=== PATIENT | male | born 2005 | race Caucasian/White ===

== ENCOUNTER 2025-06-01 06:14 | Emergency (ER) | payer BC, SELFPAY ==
[2025-06-01 06:17] VITALS: BP 131/92
[2025-06-01 06:51] LABS: Hematocrit 48.5 % (39.0-52.0); Hemoglobin 17.1 g/dL (13.0-18.0); Mean Corp Hgb Conc. 35.3 g/dL (33.0-37.0); Mean Corpuscular Volume 85.8 fL (80.0-94.0); Platelet Count 178 10^3/uL (130-400); Red Cell Dist. Width 11.9 % (11.5-14.5)
[2025-06-01 07:01] LABS: Urine Character Clear (Clear)
--- NOTE | 2025-06-01 07:03 | ED.GENMED ---
History of Present Illness
<Joaquin Springer MD, Resident - Last Filed: 06/01/25 08:40>
General
Chief Complaint: Abdominal Symptoms
Source: patient
Exam Limitations: none
Time Seen by Provider: 06/01/25 06:43
Nursing documentation reviewed up to this point in time: agreed with
History of Present Illness
History of Present Illness:
This is a 19-year-old male with history of psoriasis presenting today with complaints of abdominal pain, nonbloody watery diarrhea, nausea and vomiting. Reports that symptoms started 3 days ago. Only 1 today. Some however the next day he
experienced abdominal pain continuous vomiting and developed diarrhea which is still ongoing. He has been experiencing episodes of vomiting and diarrhea every 1-2 hours. Today when he woke up he noticed bilateral flank pain. Denies any urinary
symptoms. Denies any chest pain, shortness of breath, change in vision or any weakness. Due to ongoing diarrhea and vomiting he is also complaining of mild headache. Denies any documented fever, reports that he has experienced some chills with
the symptoms. Rates the pain as 5/10, intermittent in nature, sharp, aggravated with sitting up. Unsure of any relieving factors. Denies any recent sickness or sick contacts.
Past History
<Joaquin Springer MD, Resident - Last Filed: 06/01/25 08:40>
Past History
ED Past Medical History: Other (Psoriasis)
ED Past Surgical History: Other (Leukopenia, adenoidectomy, circumcision)
Patient has exhibited threatening behavior?: No
Social History
Tobacco: Non-smoker
Alcohol: Occasional
Drug: Marijuana
Living: with family
Family History
Family History: Other (Noncontributory)
Review of Systems
<Joaquin Springer MD, Resident - Last Filed: 06/01/25 08:40>
Review of Systems
Allergies reviewed?: Yes
Constitutional: Reports chills; Denies fever or night sweats
EENT: Denies sore throat
Cardiac: Denies chest pain
ABD/GI: Reports abdominal pain, nausea, vomiting and diarrhea; Denies bloody stools
: Reports flank pain; Denies dysuria, frequency, incontinence or difficulty voiding
Musculoskeletal: Denies joint pain
Skin: Denies itching
Neurological: Reports headache; Denies dizzy
Endocrine: Denies polyuria
Hematologic/Lymphatic: Denies bleeding
Phy Exam
<Joaquin Springer MD, Resident - Last Filed: 06/01/25 08:40>
General Physical Exam
General Presentation: well appearing and no apparent distress
General age: appears stated age
General Skin: warm
General Habitus: normal
General Mental: alert
General Hydration: appears well hydrated
Eye Exam
Eye Exam: EOMI
Cardiovascular Exam
Cardiovascular Exam: regular rate/rhythm and no murmur
Pulmonary Exam
Pulmonary Exam: lungs clear, no respiratory distress and no cough
Gastrointestinal Exam
Gastrointestinal Exam: normal bowel sounds, non tender, soft, no pulsatile mass, non distended and no cva tenderness
Neurological Exam
Neurological Exam: alert and oriented x3
Musculoskeletal Exam
Musculoskeletal Exam: full ROM
Course
<Joaquin Springer MD, Resident - Last Filed: 06/01/25 08:40>
Orders/Labs/Results
Orders:
Orders
06/01/25 06:32
Urinalysis Reflex To Culture Urgent
Date Specimen was Collected: 06/01/25
Time Specimen was Collected: 06:28
Urine Microscopic Reflex Cult Urgent
06/01/25 06:35
Complete Blood Count/With Diff Urgent
Comprehensive Metabolic Panel Urgent
Lipase Urgent
Comment: ADD ON
Manual Differential Urgent
06/01/25 07:07
Add On- LAB Urgent
Tests Added?: Lipase
0.9% Sodium Chloride 1000 ml [Nss] 1,000 ml IV BOLUS
Ondansetron Injectable [Zofran] 4 mg IV NOW STA
06/01/25 08:10
Stool Culture Urgent
CUBA Source: Feces/Stool
Specimen Description:
Date Specimen was Collected: 06/01/25
Time Specimen was Collected: 07:58
Abnormal Lab Results
06/01/25 06/01/25
06:32 06:35
Lymphocytes (Manual) 18 L %
(20-51)
Monocytes (Manual) 20 H %
(2-9)
Glucose 101 H mg/dl
(70-99)
ALT 68 H U/L
(0-50)
Ur Occult Blood Reflex 3+ A
(Negative)
Urine RBC 3-6 A /HPF
(0-2)
Urine Albumin (Reflex) 1+ A
(Neg - Trace)
06/01/25 06:35
06/01/25 06:35
Vital Signs
Initial and Last Documented VS:
Initial Vital Signs
Temp Pulse Resp BP Pulse Ox
98.6 F 81 14 131/92 99
06/01/25 06:17 06/01/25 06:17 06/01/25 06:17 06/01/25 06:17 06/01/25 06:17
Last Documented Vital Signs
Temp Pulse Resp BP Pulse Ox
98.6 F 81 14 131/92 99
06/01/25 06:17 06/01/25 06:17 06/01/25 06:17 06/01/25 06:17 06/01/25 07:04
<Jeison Mustafa MD - Last Filed: 06/01/25 07:28>
Orders/Labs/Results
Orders:
Orders
06/01/25 06:32
Urinalysis Reflex To Culture Urgent
Date Specimen was Collected: 06/01/25
Time Specimen was Collected: 06:28
Urine Microscopic Reflex Cult Urgent
06/01/25 06:35
Complete Blood Count/With Diff Urgent
Comprehensive Metabolic Panel Urgent
Lipase Urgent
Comment: ADD ON
Manual Differential Urgent
06/01/25 07:07
Add On- LAB Urgent
Tests Added?: Lipase
0.9% Sodium Chloride 1000 ml [Nss] 1,000 ml IV BOLUS
Ondansetron Injectable [Zofran] 4 mg IV NOW STA
06/01/25 08:10
Stool Culture Urgent
CUBA Source: Feces/Stool
Specimen Description:
Date Specimen was Collected: 06/01/25
Time Specimen was Collected: 07:58
Abnormal Lab Results
06/01/25 06/01/25
06:32 06:35
Lymphocytes (Manual) 18 L %
(20-51)
Monocytes (Manual) 20 H %
(2-9)
Glucose 101 H mg/dl
(70-99)
ALT 68 H U/L
(0-50)
Ur Occult Blood Reflex 3+ A
(Negative)
Urine RBC 3-6 A /HPF
(0-2)
Urine Albumin (Reflex) 1+ A
(Neg - Trace)
06/01/25 06:35
06/01/25 06:35
Vital Signs
Initial and Last Documented VS:
Initial Vital Signs
Temp Pulse Resp BP Pulse Ox
98.6 F 81 14 131/92 99
06/01/25 06:17 06/01/25 06:17 06/01/25 06:17 06/01/25 06:17 06/01/25 06:17
Last Documented Vital Signs
Temp Pulse Resp BP Pulse Ox
98.6 F 81 14 131/92 99
06/01/25 06:17 06/01/25 06:17 06/01/25 06:17 06/01/25 06:17 06/01/25 07:04
<Joaquin Springer MD, Resident - Last Filed: 06/01/25 08:40>
MDM/Problems Addressed
Differential Diagnosis Includes:
viral enteritis vs less likely pancreatitis vs, unlikely renal colic vs unlikely appendicitis
MDM/Problems Addressed:
CBC, CMP, lipase, urinalysis
check stool culture
IV normal saline 1 L bolus
IV Zofran
Will hold off on any imaging studies for now
update:
CBC with hemoglobin of 7.4 and unremarkable
CMP with mild elevation of ALT to 68 likely due to vomiting and diarrhea
Serum lipase within normal limits
Urinalysis with microscopic hematuria; unremarkable.
Trial for p.o. toleration.
Shared decision was made with patient for discharge home. Return precautions reviewed.
Patient and mother agree with the plan voices understanding.
<Joaquin Springer MD, Resident - Last Filed: 06/01/25 08:40>
*Pulse Oximetry
SaO2: 99
Patient hypoxic: no
*Critical Care Note
Total Time (30-74mins, 75-104mins- exclusive of procedures): Not Applicable
ED Attending Note
<Joaquin Springer MD, Resident - Last Filed: 06/01/25 08:40>
-
Portions of this chart may have been created with voice recognition software.� Occasional wrong word or��sound alike� substitutions may have occurred due to the inherent limitations of voice recognition software.
<Jeison Mustafa MD - Last Filed: 06/01/25 07:28>
ED Attending Note
Patient seen and examined by attending physician: Yes
I performed a history and physical exam of patient and discussed management with resident, I reviewed resident's note and agree with documented findings and plan of care.: Yes
ED Attending Note:
I have seen and evaluated the patient with a [id number] encounter. I have spoken to the resident and involved in the medical history, the physical exam, medical decision making.
Evaluation and management service: agree unless noted differently below.
Results interpretation: agree unless noted differently below.
Focused HPI: 19-year-old male with no significant chronic medical issues presents to the ER for evaluation of nausea/vomiting/diarrhea. 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
about once an hour Saturday morning. He says that initially he thought it was from some mild alcohol intake the night prior but symptoms continued throughout the day. The next day vomiting improved although still significant nausea and he began to
have profuse watery diarrhea nonbloody. He says he has had some aching in his low back and some occasional abdominal cramping. He denies fever or chills. He denies any other acute complaints. He did travel to [facility] about a month ago and
was in the [place] over the weekend. No recent antibiotics.
Physical exam: Awake alert no distress. Vital signs all within acceptable range. Abdomen soft and completely nontender to deep palpation with no palpable masses. His mucous membranes are slightly dry. No cardiac rubs gallops or murmurs, lungs
clear to auscultation.
Medical Decision Makin-year-old male presents for evaluation of GI illness as described above. Symptoms are consistent with gastroenteritis/colitis. Will plan to place an IV and check basic labs/electrolytes. Send stool studies if able.
Provide fluids and antiemetic. Reassess after the above. He has no abdominal tenderness he says only occasional cramping and some mild aching in the low back�in my judgment no indication for emergent abdominal imaging at this point in time.
Discharge Plan
Departure
Patient Disposition: Home (Routine Discharge)
Date of Disposition: 06/01/25
Time of Disposition: 08:36
Patient with high blood pressure during this ER visit?: Yes
Condition: Good
Discharge Problem:
Viral gastroenteritis
Instructions: Diarrhea in teens and adults, Viral gastroenteritis in adults
Prescriptions:
No Action
diclofenac sodium 75 mg tablet,delayed release (DR/EC)
75 mg PO BID Qty: 10 0RF
Referrals:
Enmanuel Mitchell III, DO [Family Provider, Pediatrics] - Follow up in 1 week
Activity Restrictions/Additional Instructions:
You were seen at [facility] emergency department with concerns of generalized abdominal pain, diarrhea and vomiting. We performed blood work including complete blood count, complete metabolic panel, urinalysis, serum lipase. All the blood
work was unremarkable. There was a mild increase in one of the liver enzyme called ALT however this could be due to dehydration from diarrhea and vomiting. You received 1 dose of IV Zofran and 1 L of normal saline. If you develop any new
symptoms, or any worrisome concerns please return to the emergency department. Please follow-up with your family doctor for additional recommendation and evaluation
Interventions
Interventions:
*Risk Screen - Suicide Last Done: 06/01/25 06:17
*General Assessment Last Done: 06/01/25 07:26
*Neglect/Abuse Screening Last Done: 06/01/25 07:26
*ED- Fall Risk Assessment Last Done: 06/01/25 07:26
*ED COVID-19 Vaccine History Last Done: 06/01/25 07:26
RT-Hkrjrp-Qphuqdsmkd Assessment Last Done: 06/01/25 07:26
Discharge Date and Time
Print Language: [id number]
[2025-06-01 07:04] LABS: ALT (SGPT) 68 U/L (0-50); AST (SGOT) 29 U/L (17-59); Albumin 4.7 g/dl (3.5-5.0); Alkaline Phosphatase 90 U/L (38-126); Blood Urea Nitrogen 18 mg/dl (9-20); Calcium 9.4 mg/dl (8.4-10.2); Carbon Dioxide 30 mmol/L (22-30); Chloride 98 mmol/L (98-107); Glucose 101 mg/dl (70-99); Potassium 3.8 mmol/L (3.5-5.1); Sodium 135 mmol/L (135-145); Total Protein 7.1 g/dl (6.3-8.2); eGFR > 60.00
[2025-06-01 07:17] VITALS: BMI 23.4
[2025-06-01 07:22] LABS: Lipase 112 U/L (23-300)
[2025-06-01] MEDS: ZOFRAN 4 MG IV (07:24)
[2025-06-01] MEDS: NSS 1000 IV (07:24)
[2025-06-01 07:59] LABS: Urine Squamous Cell 0-2 /LPF (Few)
[2025-06-01 08:00] LABS: Urine White Cell 0-2 /HPF (0-5)
[2025-06-01 08:12] LABS: Absolute Neutrophils -Man Diff 3.6 10^3/uL (1.4-6.5); Normal RBC Morphology Yes; Platelets Checked Yes
[2025-06-01 08:13] LABS: Total Cells Counted 100
[2025-06-01 09:24] VITALS: BP 110/60
== END 2025-06-01 09:26 | disposition home or self-care (01) ==
LOC: EMR 06:14
PROVIDERS: EMERGENCY PHYSICIAN Emergency Medicine; FAMILY PHYSICIAN Student in an Organized Health Care Education/Training Program
DX: A08.4 Viral intestinal infection, unspecified (principal); L40.9 Psoriasis, unspecified
CPT/HCPCS: 99283; 96374; 96361; 80053; 81003; 81015; 83690; 85025; 87045; 87046; 87427